=== PATIENT | male | born 1975 | race Caucasian/White ===

== ENCOUNTER 2016-06-14 11:46 | Observation (INO) | payer MEDICAID, MEDICARE ==
[~2016-06-14] VITALS: Ht 180.3 cm; Wt 150.0 kg
[2016-06-14] VITALS (8 sets, daily range): BP systolic 129–177; BP diastolic 68–91; PULSE 79–91; RESP 18–20; TEMP 98.2–98.3; O2SAT 96–100
[~2016-06-14 11:46] MED LIST: LISI-363 PO; RANI150 PO
--- NOTE | 2016-06-14 11:54 | PD ---
Physical Exam Date Seen by Provider: Jun 14, 2016 Time Seen by Provider: 11:52 Narrative 40 yo male that presents to the ED for evaluation of left shoulder pain radiating to the hand for 3 days. Got better but worst today. Not severe but enough to concern him. No chest pain or SOB. History of myopathy. Pain is 3/10. No trauma or injury. No fevers. No numbness, tingling, weakness. Vitals sign stable. Patient awaiting bed placement Data Data Last Documented VS Vital Signs Date Time Temp Pulse Resp B/P Pulse Ox O2 Delivery O2 Flow Rate FiO2 06/14/16 11:48 98.3 90 20 148/86 100 Room Air [facility] Medical Record Reviewed: Yes Supervised Visit with DARCIE: Hardik Kimbrough Jun 14, 2016 11:54
[2016-06-14] MEDS ORDERED: SODIUM CHLORIDE 0.9% FLUSH 10 ML FLUSH IVF PRN (13:00)
[2016-06-14] MEDS ORDERED: ASPIRIN 81 MG CHEW TAB PO ONE (13:00)
--- NOTE | 2016-06-14 13:12 | PD ---
HPI Chief Complaint: Pain: Acute or Chronic Time Seen by Provider: 13:12 Travel History International Travel<30 days: No Contact w/Intl Traveler<30days: No Traveled to known affect area: No History of Present Illness HPI 40-year-old male with a history of hypertension and muscular dystrophy presents to the emergency department for evaluation of left arm pain for 3 days. The patient states that he has had intermittent left neck pain radiating to the left shoulder and left arm for the past 3 days. States that the pain is sometimes a burning sensation in his left arm and he has had some tingling in the left arm as well. States that he has also had a few episodes of sharp left lower chest pain immediately followed by belching. Denies any shortness of breath, difficulty breathing, fever, chills, nausea, vomiting, lightheadedness, dizziness, abdominal pain. Denies any history of heart disease or NV. Denies any history of blood clots. He has a remote smoking history of 10 years. States that both his mother and father had cardiac disease, his mother had an NV in her early 60s. The patient is wheelchair-bound due to his muscular dystrophy. No other complaints. [facility] Past Medical History Medical other: Yes (SLONM with [facility]) Immunizations Current: Yes Tetanus Vaccination: Unknown Influenza Vaccination: No Past Surgical History Abdominal Surgery: Yes (CHOLECYSTECTOMY) Cholecystectomy: Yes Social History Alcohol Use: Yes (occu ) Tobacco Use: No (quit 2009) Substance Use: No Allergies-Medications (Allergen,Severity, Reaction): Coded Allergies: No Known Allergies (Unverified , 11/29/11) Reported Meds & Prescriptions Reported Meds & Active Scripts Active Reported Prednisone 5 Mg Tab 5 Mg PO DAILY Lisinopril-Hctz 20-12.5 Mg Tab 1 Tab PO DAILY Review of Systems Except as stated in HPI: all other systems reviewed are Neg Physical Exam Narrative GENERAL: Well-nourished and well-developed pleasant male patient in no acute distress who is nontoxic appearing. SKIN: Warm and dry. HEAD: Normocephalic and atraumatic. EYES: No injection, drainage, or hyphema noted. PERRLA. EOMI. ENT: No nasal drainage noted. Oropharynx is clear. NECK: Supple and the trachea is midline. Mild tenderness to palpation of left trapezius muscle. CARDIOVASCULAR: Regular rate and rhythm. RESPIRATORY: Breath sounds are equal bilaterally with no accessory muscle use, wheezing, rhonchi, or crackles. GASTROINTESTINAL: Abdomen is soft, non-tender, and nondistended. MUSCULOSKELETAL: No obvious deformities, swelling, cyanosis, or ecchymosis is present throughout the upper and lower extremities. DP pulses 2+ bilaterally. Radial pulses are 2+ bilaterally. NEUROLOGICAL: Awake, alert, and oriented. Normal speech and gait. Cranial nerves are grossly intact. Data Data Last Documented VS Vital Signs Date Time Temp Pulse Resp B/P Pulse Ox O2 Delivery O2 Flow Rate FiO2 06/14/16 14:00 79 18 139/91 98 Room Air 06/14/16 11:48 98.3 Orders Electrocardiogram (06/14/16 12:58) Ckmb (Isoenzyme) Profile (06/14/16 12:58) Complete Blood Count With Diff (06/14/16 12:58) Comprehensive Metabolic Panel (06/14/16 12:58) D-Dimer (06/14/16 12:58) Magnesium (Mg) (06/14/16 12:58) Prothrombin Time / Inr (Pt) (06/14/16 12:58) Act Partial Throm Time (Ptt) (06/14/16 12:58) Troponin I (06/14/16 12:58) Chest, Single Ap (06/14/16 12:58) Ecg Monitoring (06/14/16 12:58) Bilateral Bp Monitoring (06/14/16 12:58) Iv Access Insert/Monitor (06/14/16 12:58) Oximetry (06/14/16 12:58) Oxygen Administration (06/14/16 12:58) Aspirin Chew (Aspirin Chew) (06/14/16 13:00) Sodium Chloride 0.9% Flush (Ns Flush) (06/14/16 13:00) Lipase (06/14/16 12:58) Admit Order (Ed Use Only) (06/14/16 14:27) Labs Laboratory Tests Test 06/14/16 13:25 White Blood Count 11.6 TH/MM3 Red Blood Count 5.28 MIL/MM3 Hemoglobin 14.0 GM/DL Hematocrit 42.5 % Mean Corpuscular Volume 80.3 FL Mean Corpuscular Hemoglobin 26.5 PG Mean Corpuscular Hemoglobin 33.0 % Concent Red Cell Distribution Width 15.0 % Platelet Count 316 TH/MM3 Mean Platelet Volume 7.8 FL Neutrophils (%) (Auto) 84.0 % Lymphocytes (%) (Auto) 7.7 % Monocytes (%) (Auto) 6.8 % Eosinophils (%) (Auto) 0.7 % Basophils (%) (Auto) 0.8 % Neutrophils # (Auto) 9.8 TH/MM3 Lymphocytes # (Auto) 0.9 TH/MM3 Monocytes # (Auto) 0.8 TH/MM3 Eosinophils # (Auto) 0.1 TH/MM3 Basophils # (Auto) 0.1 TH/MM3 CBC Comment DIFF FINAL Differential Comment Prothrombin Time 11.3 SEC Prothromb Time International 1.0 RATIO Ratio Activated Partial 29.9 SEC Thromboplast Time D-Dimer Quantitative (PE/DVT) 0.21 MG/L FEU Sodium Level 139 MEQ/L Potassium Level 3.8 MEQ/L Chloride Level 102 MEQ/L Carbon Dioxide Level 24.5 MEQ/L Anion Gap 13 MEQ/L Blood Urea Nitrogen 7 MG/DL Creatinine 0.26 MG/DL Estimat Glomerular Filtration 390 ML/MIN Rate Random Glucose 87 MG/DL Calcium Level 9.5 MG/DL Magnesium Level 2.1 MG/DL Total Bilirubin 0.5 MG/DL Aspartate Amino Transf 19 U/L (AST/SGOT) Alanine Aminotransferase 31 U/L (ALT/SGPT) Alkaline Phosphatase 60 U/L Total Creatine Kinase 26 U/L Troponin I LESS THAN 0.02 NG/ML Total Protein 7.3 GM/DL Albumin 3.7 GM/DL Lipase 96 U/L MDM Medical Decision Making Medical Screen Exam Complete: Yes Emergency Medical Condition: Yes Differential Diagnosis Cervical radiculopathy versus anginal equivalent versus ACS versus pleurisy versus PE Narrative Course 50-year-old male presents to the emergency department for evaluation of left- sided neck pain radiating to the left arm with some left chest pain. Patient is afebrile, vital signs are stable. Physical examination reveals he does have some tenderness to the left trapezius musculature but is otherwise unremarkable for any acute abnormalities. He has weakness in his extremities that is chronic. IV access is obtained, labs were drawn and sent. Patient is placed on cardiac telemetry and pulse oximetry monitoring. Patient is administered aspirin. EKG shows sinus rhythm with no acute ST elevations or depressions. CBC shows a slightly elevated white blood cell count 11.6, otherwise unremarkable. CMP is unremarkable. Troponin is less than 0.02. Coags are unremarkable. D-dimer is negative. Chest x-ray is negative for any acute abnormalities. Patient has remained stable without complaint while here in the emergency department. I do think this pain is atypical and could represent a cervical radiculopathy however because he did experience some chest pain I recommend to the patient that he should stay and chest pain center and patient and family are agreeable with this plan. I discussed the case with my attending physician Dr. Barrientos who is aware of the patients history, physical examination findings, and treatment plan. Diagnosis Primary Impression: Chest pain Qualified Code: R07.9 - Chest pain, unspecified type Additional Impressions: Neck pain on left side Left arm pain Ruth Arceo Jun 14, 2016 13:12
--- NOTE | 2016-06-14 13:25 | RADRPT ---
EXAM DATE/TIME: 06/14/2016 12:55 [facility] COMPARISON: No previous studies available for comparison. INDICATIONS : Patient states chest pains. MEDICAL HISTORY : None. SURGICAL HISTORY : None. ENCOUNTER: Initial ACUITY: 1 day PAIN SCORE: 6/10 LOCATION: Bilateral chest FINDINGS: A single view of the chest demonstrates the lungs to be symmetrically aerated without evidence of mas s, infiltrate or effusion. The cardiomediastinal contours are unremarkable. Osseous structures are intact. CONCLUSION: No acute disease. Garo Servin MD on June 14, 2016 at 13:22 Board Certified Radiologist. This report was verified electronically.
[2016-06-14] MEDS ORDERED: LISI20TA PO (13:33)
[2016-06-14] MEDS ORDERED: PRED5TAB PO (13:34)
[2016-06-14 13:47] LABS: AUTOMATED NEUTROPHIL # 9.8 TH/MM3 (1.8-7.7); BASOPHIL # 0.1 TH/MM3 (0-0.2); BASOPHIL % 0.8 % (0.0-2.0); EOSINOPHIL # 0.1 TH/MM3 (0-0.4); EOSINOPHIL % 0.7 % (0.0-4.0); HEMATOCRIT 42.5 % (39.0-51.0); HEMO FLAGS DIFF FINAL; LYMPH % 7.7 % (9.0-44.0); LYMPHOCYTE # 0.9 TH/MM3 (1.0-4.8); MEAN CELL VOLUME 80.3 FL (80.0-100.0); MEAN CORPUSCULAR HEMOGLOBIN 26.5 PG (27.0-34.0); MONO % 6.8 % (0.0-8.0); PLATELET COUNT 316 TH/MM3 (150-450); RED BLOOD COUNT 5.28 MIL/MM3 (4.50-5.90); WHITE BLOOD COUNT 11.6 TH/MM3 (4.0-11.0)
[2016-06-14 13:57] LABS: APTT (PATIENT) 29.9 SEC (24.3-30.1); PROTHROMBIN TIME - PATIENT 11.3 SEC (9.8-11.6)
[2016-06-14 14:09] LABS: ALT (GPT) 31 U/L (12-78); ANION GAP 13 MEQ/L (5-15); AST (GOT) 19 U/L (15-37); BICARBONATE 24.5 MEQ/L (21.0-32.0); BLOOD UREA NITROGEN 7 MG/DL (7-18); CHLORIDE 102 MEQ/L (98-107); GLOMERULAR FILTRATION RATE 390 ML/MIN (>89); MAGNESIUM 2.1 MG/DL (1.5-2.5); POTASSIUM 3.8 MEQ/L (3.5-5.1); SODIUM (NA) 139 MEQ/L (136-145)
[2016-06-14 14:13] LABS: ALKALINE PHOSPHATASE 60 U/L (45-117); TOTAL BILIRUBIN ADULT 0.5 MG/DL (0.2-1.0)
[2016-06-14 14:17] LABS: CREATINE KINASE 26 U/L (39-308)
[2016-06-14] MEDS ORDERED: cloNIDine HCL 0.1 MG TAB PO PRN (15:15)
[2016-06-14] MEDS ORDERED: ONDANSETRON HCL 4 MG/2 ML VIAL IV PRN (15:15)
[2016-06-14] MEDS ORDERED: ALPRAZolam 0.25 MG TAB PO PRN (15:15)
[2016-06-14] MEDS ORDERED: SODIUM CHLORIDE 0.9% FLUSH 5 ML FLUSH IVF PRN (15:15)
[2016-06-14] MEDS ORDERED: RESP: ALBUTEROL 2.5 MG/IPRATROPIUM 0.5 MG NEB (PRN) INH (15:15)
[2016-06-14] MEDS ORDERED: ACETAMINOPHEN 500 MG CPLT PO PRN (15:15)
[2016-06-14] MEDS ORDERED: ACETAMINOPHEN/HYDROcodone 325 MG/7.5 MG TAB PO PRN (15:15)
--- NOTE | 2016-06-14 15:19 | HHI.HP ---
HPI Primary Care Physician Michelle Mittal MD Chief Complaint Chest pain History of Present Illness This is a 40-year-old male that presents to the ED via private vehicle complaining of a left-sided chest pain, left shoulder pain and arm pain. First episode was a few days ago. He had a shock sensation of the left shoulder with the discomfort rated down left arm. Last a few minutes. Then 2 days later reoccurred but also radiating into the left chest. That lasted 3 hours. He decided coming to the ER today for this evaluation. He denies history of heart disease but states that parents both have had cardiac issues. Patient suffers from muscular dystrophy. He is wheelchair-bound. Denies recent illnesses. Denies fevers or chills. Review of Systems General: Patient denies fevers, chills recent, and recent travel HEENT: Patient denies headache, sore throat, difficulty swallowing. Cardiovascular: Has the chest discomfort as mentioned above. Denies sensation of heart beating rapidly or irregularly. No syncope. Respiratory: Denies shortness of breath or inspirational chest discomfort. Denies coughing wheezing or hemoptysis. GI: Patient denies nausea, vomiting, diarrhea, abdominal pain, bloody stools. Musculoskeletal: Complains of left shoulder discomfort. Chronic weakness in his extremities. Neurovascular: Patient has chronic weakness in extremities. Denies headache. Endocrine: Denies polyuria and polydipsia. Hematologic: Denies easy bruising. Skin: Denies rash or itching. Past Family Social History Allergies: Coded Allergies: No Known Allergies (Unverified , 11/29/11) Past Medical History Muscular dystrophy, hypertension. Denies hyperlipidemia diabetes and known CAD. Past Surgical History Cholecystectomy. Reported Medications Reported Meds & Active Scripts Active Reported Prednisone 5 Mg Tab 5 Mg PO DAILY Lisinopril-Hctz 20-12.5 Mg Tab 1 Tab PO DAILY Active Ordered Medications Current Medications Medications (Trade) Dose Ordered Sig/Lily Route Start Time Stop Time Status Last Admin (NS Flush) 2 ml UNSCH PRN IVF 06/14/16 13:00 Family History His mother had an ID in her 60s. His father has CHF. Social History Patient does not smoke, he quit 7 years ago. Has occasional alcohol. Denies illicit drugs. Physical Exam Vital Signs Vital Signs Date Time Temp Pulse Resp B/P Pulse Ox O2 Delivery O2 Flow Rate FiO2 06/14/16 14:00 79 18 139/91 98 Room Air 06/14/16 13:12 83 18 139/91 100 Room Air 06/14/16 12:55 18 06/14/16 11:48 98.3 90 20 148/86 100 Room Air Physical Exam GENERAL: This is a well-nourished, well-developed patient, in no apparent distress. Patient speaks in clear complete sentences. Patient is pleasant. HEENT: Head is atraumatic and normocephalic. Neck is supple without lymphadenopathy and trachea is midline. No JVD or carotid bruits. CARDIOVASCULAR: Regular rate and rhythm without murmurs, gallops, or rubs. RESPIRATORY: Clear to auscultation. Breath sounds equal bilaterally. No wheezes , rales, or rhonchi. Chest wall is nontender. No use of accessory muscles. GASTROINTESTINAL: Abdomen is nontender, nondistended. Abdomen soft. Normal bowel sounds. MUSCULOSKELETAL: Patient is chronic weakness in extremities. Full range of motion not tested. NEUROLOGICAL: Patient is alert and oriented. He has chronic weakness in extremities. Speech is clear. SKIN: No rash and turgor is normal. Laboratory Laboratory Tests Test 06/14/16 13:25 White Blood Count 11.6 Red Blood Count 5.28 Hemoglobin 14.0 Hematocrit 42.5 Mean Corpuscular Volume 80.3 Mean Corpuscular Hemoglobin 26.5 Mean Corpuscular Hemoglobin 33.0 Concent Red Cell Distribution Width 15.0 Platelet Count 316 Mean Platelet Volume 7.8 Neutrophils (%) (Auto) 84.0 Lymphocytes (%) (Auto) 7.7 Monocytes (%) (Auto) 6.8 Eosinophils (%) (Auto) 0.7 Basophils (%) (Auto) 0.8 Neutrophils # (Auto) 9.8 Lymphocytes # (Auto) 0.9 Monocytes # (Auto) 0.8 Eosinophils # (Auto) 0.1 Basophils # (Auto) 0.1 CBC Comment DIFF FINAL Differential Comment Prothrombin Time 11.3 Prothromb Time International 1.0 Ratio Activated Partial 29.9 Thromboplast Time D-Dimer Quantitative (PE/DVT) 0.21 Sodium Level 139 Potassium Level 3.8 Chloride Level 102 Carbon Dioxide Level 24.5 Anion Gap 13 Blood Urea Nitrogen 7 Creatinine 0.26 Estimat Glomerular Filtration 390 Rate Random Glucose 87 Calcium Level 9.5 Magnesium Level 2.1 Total Bilirubin 0.5 Aspartate Amino Transf 19 (AST/SGOT) Alanine Aminotransferase 31 (ALT/SGPT) Alkaline Phosphatase 60 Total Creatine Kinase 26 Troponin I LESS THAN 0.02 Total Protein 7.3 Albumin 3.7 Lipase 96 Result Diagram: 06/14/16 1325 06/14/16 1325 Imaging Last Impressions Chest X-Ray 06/14/16 1258 Signed Impressions: Service Date/Time: Tuesday, June 14, 2016 12:55 - CONCLUSION: No acute disease. Garo Servin MD Course Initial EKG is sinus rhythm without significant ST segment depressions or elevations. Assessment and Plan Assessment and Plan * Chest pain: Patient will continue to have serial cardiac enzymes and EKGs for ruling out purposes. He has been seen by Dr. Curly Knapp of cardiology in the chest pain center and will undergo a Lexiscan in the morning if he does rule out. He'll be discharged home if the stress test were to be nonischemic. * Hypertension: Continue current medication. * Muscular dystrophy: Continue current medications. Follow-up with his physician. Patient is stable this time. He is agreeable to this plan. Geo King Jun 14, 2016 15:19
[2016-06-14] MEDS: PANTOPRAZOLE SOD 40 MG DELAYED RELEASE TAB PO SCH (17:39)
[2016-06-14 17:52] LABS: CREATINE KINASE 154 U/L (39-308)
[2016-06-14 18:22] LABS: CKMB 1.4 NG/ML (0.5-3.6)
[2016-06-14] MEDS ORDERED: SODIUM CHLORIDE 0.9% FLUSH 5 ML FLUSH IVF SCH (21:00)
[2016-06-14 21:27] LABS: CREATINE KINASE 24 U/L (39-308)
[2016-06-15 03:27] VITALS: BP 101/52; PULSE 83; RESP 20; TEMP 98.1; O2SAT 95
[2016-06-15 08:00] VITALS: BP 134/73; PULSE 94; RESP 18; TEMP 97.8; O2SAT 97
[2016-06-15] MEDS ORDERED: ASPIRIN 325 MG TAB PO SCH (09:00)
[2016-06-15] MEDS: PANTOPRAZOLE SOD 40 MG DELAYED RELEASE TAB PO SCH (09:00)
[2016-06-15] MEDS ORDERED: REGADENOSON INJ 0.4 MG/5 ML SYR ONE (09:59)
--- NOTE | 2016-06-15 11:31 | RADRPT ---
EXAM DATE/TIME: 06/15/2016 09:21 [facility] COMPARISON: No previous studies available for comparison. INDICATIONS : Left sided chest pain for two days. Angina. DOSE: 35.0 mCi Tc99m Myoview at stress. 11.0 mCi Tc99m Myoview at rest. 0.4 mg Lexiscan STRESS SYMPTOMS: Shortness of breath with chest pressure and nausea. EJECTION FRACTION: 62% MEDICAL HISTORY : Hypertension. SURGICAL HISTORY : Cholecystectomy. ENCOUNTER: Initial ACUITY: 2 days PAIN SCALE: 8/10 LOCATION: Left chest TECHNIQUE: The patient underwent pharmacologic stress with infusion of prescribed dose. Continuous ECG tracing was monitored during stress. Gated SPECT imaging was performed after stress and conventional SPECT i maging was performed at rest. The examination was performed on a SPECT/CT scanner, both attenuation and non-corrected datasets were reviewed. FINDINGS: DISTRIBUTION: The maximum perfused segment at stress is in the septal wall. PERFUSION STUDY: The pattern of perfusion at stress is within normal limits. GATED STUDY: There is intact wall motion and thickening without hypokinetic or dyskinetic segments. CONCLUSION: Normal examination. RISK CATEGORY: Low (<1% Annual Mortality Rate) Ace Vergara MD on June 15, 2016 at 11:28 Board Certified Radiologist. This report was verified electronically.
--- NOTE | 2016-06-15 11:39 | HHI.DCPOC ---
Discharge Care Plan Diagnosis: (1) Chest pain Goals to Promote Your Health * To prevent worsening of your condition and complications * To maintain your health at the optimal level Directions to Meet Your Goals Take your medications as prescribed Follow your dietary instruction Follow activity as directed Keep your appointments as scheduled Take your immunizations and boosters as scheduled If your symptoms worsen call your PCP, if no PCP go to Urgent Care Center or Emergency Room Smoking is Dangerous to Your Health. Avoid second hand smoke Call the 24-hour hour crisis hotline for domestic abuse at Geo King Jun 15, 2016 11:39
[2016-06-15] MEDS ORDERED: NON-FORMULARY DRUG (Lisinopril-Hctz 1 TAB) PO SCH (11:45)
[2016-06-15] MEDS ORDERED: predniSONE 5 MG TAB PO SCH (11:45)
[2016-06-15 12:00] VITALS: BP 136/81; PULSE 93; RESP 18; TEMP 97.5; O2SAT 100
[2016-06-15] MEDS ORDERED: PILL SPLITTER OTHER PRN (12:15)
[2016-06-15] MEDS ORDERED: LISINOPRIL 20 MG TAB PO SCH (12:30)
[2016-06-15] MEDS ORDERED: HYDROCHLOROTHIAZIDE 25 MG TAB PO SCH (12:30)
--- NOTE | 2016-06-15 13:03 | EKG ---
Date Performed: 06/14/2016 Time Performed: 13:10:50 PTAGE: 40 years EKG: Sinus rhythm LOW QRS VOLTAGE IN PRECORDIAL LEADS BORDERLINE ECG NO PREVIOUS TRACING DOCTOR: Mir Krishna Interpretating Date/Time 06/15/2016 13:02:03
--- NOTE | 2016-06-15 13:07 | EKG ---
Date Performed: 06/14/2016 Time Performed: 16:41:50 PTAGE: 40 years EKG: Sinus rhythm LOW QRS VOLTAGE IN PRECORDIAL LEADS BORDERLINE ECG PREVIOUS TRACING : 06/14/2016 13.10 DOCTOR: Mir Krishna Interpretating Date/Time 06/15/2016 13:06:40
--- NOTE | 2016-06-15 13:11 | EKG ---
Date Performed: 06/14/2016 Time Performed: 19:57:59 PTAGE: 40 years EKG: Sinus rhythm LOW QRS VOLTAGE IN PRECORDIAL LEADS BORDERLINE ECG PREVIOUS TRACING : 06/14/2016 16.41 DOCTOR: Mir Krishna Interpretating Date/Time 06/15/2016 13:09:56
--- NOTE | 2016-06-15 13:29 | TR ---
Date Performed: 06/15/2016 Time Performed: 10:11:38 DOCTOR: Mir Krishna DRUG LIST: [id number] CLINICAL HISTORY: ANGINA REASON FOR TEST: Angina REASON FOR ENDING: OBSERVATION: CONCLUSION: Lexiscan stress test was performed under standard four minute protocol. Radionuclide was injected one minute prior to ending the test. Developed chest pressure and shortness of breath. No electrocardiographic abnormalities were present to suggest ischemia. Recovery was quick and uneven tful with resolution of symptoms. Nuclear imaging and interpretation are pending. COMMENTS:
== END 2016-06-15 13:19 | disposition home or self-care (01) ==
LOC: NEPD 11:46 → NEDA 14:29 → NEPHCDU 16:08
PROVIDERS: ADMIT Internal Medicine Cardiovascular Disease; ATTEND Internal Medicine Cardiovascular Disease
DX: R07.89 Other chest pain (principal); M79.602 Pain in left arm; M54.2 Cervicalgia; I10 Essential (primary) hypertension; G71.0 Muscular dystrophy; Z82.49 Family history of ischemic heart disease and other diseases of the circulatory system; Z99.3 Dependence on wheelchair; Z90.49 Acquired absence of other specified parts of digestive tract; Z79.899 Other long term (current) drug therapy; Z87.891 Personal history of nicotine dependence
CPT/HCPCS: 71010; 78452; 80053; 82550; 82552; 83690; 83735; 84484; 85025; 85379; 85610; 85730; 93005; 93017; 99285; A9502; G0378; J2785